=== PATIENT | female | born 1955 | race Caucasian/White ===

== ENCOUNTER 2018-07-06 06:45 | Day surgery (SDC) | payer MEDICARE, OTHER ==
[2018-07-06] MEDS: PHENYLephrine 10% 5 ML OPH OPER (07:46)
[2018-07-06] MEDS: CYCLOPENTOLATE 2% 2 ML OPH OPER (07:46)
[2018-07-06] MEDS: MOXIFLOXACIN 0.5% 3 ML OPH OPER (07:46)
[2018-07-06] MEDS: NEPAFENAC 0.1% 3 ML OPH OPER (07:46)
[2018-07-06] MEDS ORDERED: LIDOCAINE 2% (SDV) 5 ML INJ (09:26)
[2018-07-06] MEDS ORDERED: PROPOFOL 20 ML (09:26)
[2018-07-06] MEDS ORDERED: ONDANSETRON 4 MG INJ IV (09:30)
[2018-07-06] MEDS ORDERED: ACETAMINOPHEN 325 MG TAB PO (09:30)
[2018-07-06] MEDS ORDERED: ACETAMINOPHEN 500 MG TAB PO (09:30)
[2018-07-06] MEDS ORDERED: hydrALAzine 20 MG INJ IV (09:30)
[2018-07-06] MEDS ORDERED: DIPHENHYDRAMINE 50 MG INJ IV (09:30)
[2018-07-06] MEDS ORDERED: FENTAnyl 50 MCG/ML VIAL IV (09:30)
[2018-07-06] MEDS ORDERED: ALBUTEROL 0.083% (NEB) 2.5 MG/3 ML AMP HHN (09:30)
[2018-07-06] MEDS ORDERED: OXYCODONE/ACETAMINOPHEN (5/325) TAB PO (09:30)
[2018-07-06] MEDS ORDERED: LABETALOL HCL 20MG INJ IV (09:30)
== END 2018-07-06 11:33 | disposition home or self-care (01) ==
LOC: SDS 06:45
DX: H25.12 Age-related nuclear cataract, left eye (principal); I10 Essential (primary) hypertension; I25.10 Atherosclerotic heart disease of native coronary artery without angina pectoris; I25.2 Old myocardial infarction
CPT/HCPCS: 66984; 82962

== ENCOUNTER 2018-11-02 08:46 | Day surgery (SDC) | payer MEDICARE, OTHER ==
[2018-11-02] MEDS: PHENYLephrine 10% 5 ML OPH RIGHT EYE (09:23)
[2018-11-02] MEDS: CYCLOPENTOLATE 2% 2 ML OPH RIGHT EYE (09:23)
[2018-11-02] MEDS: MOXIFLOXACIN 0.5% 3 ML OPH RIGHT EYE (09:23)
[2018-11-02] MEDS: NEPAFENAC 0.1% 3 ML OPH RIGHT EYE (09:24)
[2018-11-02 10:17] LABS: ADD MAN DIFF? NO
[2018-11-02 10:19] LABS: BASOPHILS % 0.4 % (0.0-2.0); EOSINOPHILS # 0.1 10^3/ul (0.0-0.5); EOSINOPHILS % 1.6 % (0.0-7.0); HEMATOCRIT 38.6 % (37.0-47.0); HEMOGLOBIN 12.8 g/dl (12.0-16.0); LYMPHOCYTES # 2.1 10^3/ul (0.8-2.9); LYMPHOCYTES % 38.6 % (15.0-51.0); MEAN CORPUSCULAR HEMOGLOBIN 32.5 pg (29.0-33.0); MEAN CORPUSCULAR HGB CONC 33.2 g/dl (32.0-37.0); MEAN PLATELET VOLUME 11.4 fl (7.4-10.4); MONOCYTE # 0.4 10^3/ul (0.3-0.9); MONOCYTES % 7.3 % (0.0-11.0); NEUTROPHIL # 2.9 10^3/ul (1.6-7.5); NEUTROPHILS % 51.9 % (39.0-77.0); PLATELET COUNT 232 10^3/UL (140-415); RED BLOOD COUNT 3.94 10^6/ul (4.20-5.40); RED CELL DISTRIBUTION WIDTH 14.3 % (11.5-14.5)
[2018-11-02 10:19] LABS: WHITE BLOOD COUNT 5.5 10^3/ul (4.8-10.8)
[2018-11-02] MEDS ORDERED: PROPOFOL 20 ML (10:22)
[2018-11-02] MEDS ORDERED: LIDOCAINE 100 MG SYRINGE (10:22)
[2018-11-02 10:39] LABS: INR 0.87; PROTIME 11.9 Sec (11.9-14.9); PT RATIO 0.9
[2018-11-02 10:40] LABS: PARTIAL THROMBOPLASTIN TIME 30.7 Sec (23.0-35.0)
[2018-11-02] MEDS ORDERED: hydrALAzine 20 MG INJ IV (11:30)
[2018-11-02] MEDS ORDERED: ONDANSETRON 4 MG INJ IV (11:30)
[2018-11-02] MEDS ORDERED: morphine 2 MG INJ IV ×2 (11:30)
== END 2018-11-02 12:49 | disposition home or self-care (01) ==
LOC: SDS 08:46
DX: H25.11 Age-related nuclear cataract, right eye (principal); I25.10 Atherosclerotic heart disease of native coronary artery without angina pectoris; E11.9 Type 2 diabetes mellitus without complications; I10 Essential (primary) hypertension; E03.9 Hypothyroidism, unspecified; F32.9 Major depressive disorder, single episode, unspecified; Z79.84 Long term (current) use of oral hypoglycemic drugs
CPT/HCPCS: 66984; 82962; 85025; 85610; 85730